=== PATIENT | female | born 1995 | race African-American/Black ===

== ENCOUNTER 2021-05-24 01:51 | Emergency (ER) | payer SELFPAY ==
[~2021-05-24] VITALS: Ht 154.9 cm; Wt 59.0 kg
--- NOTE | 2021-05-24 02:36 | PHYS DOC ---
Past Medical History Past Surgical History: No Surgical History Alcohol Use: None General Adult EDM: Chief Complaint: CHEST PAIN HPI: HPI: Patient is a 26 year old female who present to ER for evaluation of heart palpitations and chest pressure when she woke up this morning. Patient denies any cough or fever. Patient states that she had this problem off and on for a while. Patient was evaluated by cardiology [facility]. Patient stated that they told her that she might have some form of heart block requiring more no treatment. Patient is not on any medication. Patient denies any recent travel operation. Patient denies any family history of coronary artery disease. Review of Systems: Review of Systems: Constitutional: Denies fever or chills. [] Eyes: Denies change in visual acuity. [] HENT: Denies nasal congestion or sore throat. [] Respiratory: Denies cough or shortness of breath. [] Cardiovascular: Denies chest pain or edema. [] GI: Denies abdominal pain, nausea, vomiting, bloody stools or diarrhea. [] : Denies dysuria. [] Musculoskeletal: Denies back pain or joint pain. [] Integument: Denies rash. [] Neurologic: Denies headache, focal weakness or sensory changes. [] Endocrine: Denies polyuria or polydipsia. [] Lymphatic: Denies swollen glands. [] Psychiatric: Denies depression or anxiety. [] Heart Score: C/O Chest Pain: Yes HEART Score for Chest Pain: HEART Score for Chest Pain Response (Comments) Value History Slighlty/Non-Suspicious 0 ECG Normal 0 Age < 45 0 Risk Factors No Risk Factors 0 Total 0 Risk Factors: Risk Factors: DM, Current or recent (<one month) smoker, HTN, HLP, family history of CAD, obesity. Risk Scores: Score 0 - 3: 2.5% MACE over next 6 weeks - Discharge Home Score 4 - 6: 20.3% MACE over next 6 weeks - Admit for Clinical Observation Score 7 - 10: 72.7% MACE over next 6 weeks - Early Invasive Strategies Physical Exam: PE: Constitutional: Well developed, well nourished, no acute distress, non-toxic appearance. [] HENT: Normocephalic, atraumatic, bilateral external ears normal, oropharynx moist, no oral exudates, nose normal. [] Eyes: PERRLA, EOMI, conjunctiva normal, no discharge. [] Neck: Normal range of motion, no tenderness, supple, no stridor. [] Cardiovascular:Heart rate regular rhythm, no murmur [] Lungs & Thorax: Bilateral breath sounds clear to auscultation [] Abdomen: Bowel sounds normal, soft, no tenderness, no masses, no pulsatile masses. [] Skin: Warm, dry, no erythema, no rash. [] Back: No tenderness, no CVA tenderness. [] Extremities: No tenderness, no cyanosis, no clubbing, ROM intact, no edema. [] Neurologic: Alert and oriented X 3, normal motor function, normal sensory function, no focal deficits noted. [] Psychologic: Affect normal, judgement normal, mood normal. [] EKG: EKG: EKG was done at 205, heart rate of 81 bpm, normal sinus rhythm, no ST segment elevation. Normal axis Radiology/Procedures: Radiology/Procedures: [][facility] [address] [place] [address] IMAGING REPORT Signed PATIENT: NUHA PATEL ACCOUNT: [id number] : 1995 LOCATION: ER AGE: 26 SEX: F EXAM STATUS: REG ER ORD. PHYSICIAN: ROBERT AVINA DO REASON: chest pain PROCEDURE: CHEST AP ONLY EXAM: XR CHEST 1V 05/24/2021 2:39 AM CLINICAL INDICATION: Chest pain COMPARISON: None TECHNIQUE: AP upright view of the chest FINDINGS: The heart and mediastinum are normal. Lungs are well-expanded and clear. No consolidation, pleural effusion, or pneumothorax. Pulmonary vascularity is normal. The thoracic skeleton is intact. IMPRESSION: No acute cardiopulmonary abnormality. Electronically signed by: Lorraine Alberto MD (05/24/2021 2:59 AM) [id number] DICTATED and SIGNED BY: LORRAINE ALBERTO MD DATE: 05/24/21 [id number] 0 Course & Med Decision Making: Course & Med Decision Making Pertinent Labs and Imaging studies reviewed. (See chart for details) Patient is a 26-year-old female who present to ER due to chest pain and heart p alpitation. EKG and chest x-ray did not show any acute problem. Patient will be discharged home, she will require no further investigation studies in the ER. Patient will need to follow-up with her global product manager at [facility] for reevaluation Jose G Disclaimer: Jose G Disclaimer: This electronic medical record was generated, in whole or in part, using a voice recognition dictation system. Departure Departure Impression: Primary Impression: Chest pain Disposition: HOME / SELF CARE / HOMELESS Condition: STABLE Referrals: NO PCP (PCP) Please call your global product manager at [facility] for follow-up this week. Patient Instructions: Chest Pain (Nonspecific) Additional Instructions: Thank you for visiting our Emergency Department. We appreciate you trusting us with your care. If any additional problems come up don't hesitate to return to visit us. Please follow up with your primary care provider so they can plan additional care if needed and know about the problem that you had. If symptoms worsen come back to the Emergency Department. Any concerning symptoms that start such as chest pain, shortness of air, weakness or numbness on one side of the body, running high fevers or any other concerning symptoms return to the ER. ROBERT AVINA DO May 24, 2021 02:36
--- NOTE | 2021-05-24 03:01 | RAD ---
EXAM: XR CHEST 1V 05/24/2021 2:39 AM CLINICAL INDICATION: Chest pain COMPARISON: None TECHNIQUE: AP upright view of the chest FINDINGS: The heart and mediastinum are normal. Lungs are well-expanded and clear. No consolidatio n, pleural effusion, or pneumothorax. Pulmonary vascularity is normal. The thoracic skeleton is int act. IMPRESSION: No acute cardiopulmonary abnormality. Electronically signed by: Lorraine Alberto MD (05/24/2021 2:59 AM) [id number]
[2021-05-24 03:29] VITALS: BP 115/68
== END 2021-05-24 03:25 | disposition home or self-care (01) ==
LOC: ER 01:51
DX: R07.89 Other chest pain (principal); R00.2 Palpitations
CPT/HCPCS: 71045; 99283